=== PATIENT | male | born 1995 | race Caucasian/White ===

== ENCOUNTER 2019-02-15 12:46 | Emergency (ER) | payer BC, OTHER ==
[~2019-02-15] VITALS: Ht 180 cm; Wt 93.3 kg
--- NOTE | 2019-02-15 13:10 | NUR ---
EKG SHOWN TO DR WHO IS OK WITH PT GOING BACK OUT IN THE WAITING ROOM.
[2019-02-15] MEDS ORDERED: fentaNYL INJECTION 100 MCG/2 ML AMP IVP STA (15:29)
[2019-02-15] MEDS ORDERED: NS IV 1000 ML 1,000 ML IV ONE (15:29)
[2019-02-15] MEDS ORDERED: ONDANSETRON 4 MG/2 ML (SDV) Z0FRAN IVP ONE (15:30)
[2019-02-15] MEDS ORDERED: PANTOPRAZOLE 40 MG (PROTONIX) VIAL IV ONE (15:30)
[2019-02-15 15:40] LABS: BASOPHILS % (AUTO) 0 % (0-10); EOSINOPHILS # (AUTO) 0.1 10^3/uL (0.0-0.3); EOSINOPHILS % (AUTO) 1 % (0-10); HEMATOCRIT 43 % (40-54); HEMOGLOBIN 15.3 G/DL (13.3-17.7); LYMPHOCYTES # (AUTO) 1.4 X 10^3 (1.0-4.0); LYMPHOCYTES % (AUTO) 12 % (12-44); MEAN CORPUSCULAR HEMOGLOBIN 31 PG (25-34); MEAN CORPUSCULAR HGB CONC 35 G/DL (32-36); MEAN CORPUSCULAR VOLUME 88 FL (80-99); MEAN PLATELET VOLUME 10.2 FL (7.4-10.4); MONOCYTES # (AUTO) 1.2 X 10^3 (0.0-1.0); MONOCYTES % (AUTO) 11 % (0-12); NEUTROPHILS # (AUTO) 8.5 X 10^3 (1.8-7.8); NEUTROPHILS % (AUTO) 76 % (42-75); PLATELET COUNT 264 10^3/uL (130-400); RED CELL DISTRIBUTION WIDTH 12.3 % (10.0-14.5); WHITE BLOOD COUNT 11.1 10^3/uL (4.3-11.0)
--- NOTE | 2019-02-15 15:42 | ED Abdominal Pain ---
General Chief Complaint: General Problems/Pain Stated Complaint: CP/BLACK STOOL Nursing Triage Note: UPPER RIGHT ABD PAIN THAT RADIATES INTO CHEST STARTING YESTERDAY ET STATES IT IS MORE IN HIS CHEST TODAY. STATES HE ALSO HAD A BLACK LIQUID STOOL THIS AM. HAS HAD SOME N/V IN THE LAST COUPLE OF DAYS AND WAS ALSO ON A CRUISE TO [employer] LAST WEEK. MASK APPLIED DUE TO RECENT FOREIGN TRAVEL. Sepsis Screen: No Definite Risk Source of Information: Patient Exam Limitations: No Limitations History of Present Illness Date Seen by Provider: Feb 15, 2019 Time Seen by Provider: 15:42 Initial Comments 23-year-old male patient presents to the emergency department with complaints of epigastric pain and burning beginning yesterday. Reports pain now radiates into the left chest. He does have a history of reflux symptoms, but states that they have never been this bad. He also noted diarrhea the last 2 days. Bowel movement this a.m. was black liquid. He also does complain of some nausea and vomiting. Patient states he just returned from a cruise to [place]. He reports drinking bottled water, but did eat seared meat at a couple of meals. Denies fever or chills. Patient states he lives in [place] and is passing through [place] on their way home. Timing/Duration: 1-2 Days, Getting Worse Severity/Quality: Aching, Burning Location: Epigastric Radiation: Chest Activities at Onset: None Modifying Factors: Worsens With Eating, Worsens With Palpation Allergies and Home Medications Allergies Coded Allergies: No Known Drug Allergies (Unverified , 02/15/19) Home Medications Omeprazole 40 Mg Capsule.dr, 40 MG PO BID Prescribed by: WENDY LUA on 02/15/191755 Ondansetron 8 Mg Tab.rapdis, 8 MG PO Q6H PRN for NAUSEA/VOMITING Prescribed by: WENDY LUA on 02/15/191755 Patient Home Medication List Home Medication List Reviewed: Yes Review of Systems Review of Systems Constitutional: chills; No diaphoresis, No dizziness, No fever; malaise EENTM: No Symptoms Reported Respiratory: Denies Cough, Denies Orthopnea, Denies Shortness of Air, Denies Stridor, Denies Wheezing Cardiovascular: See HPI; Denies Edema, Denies Irregular Heart Rate, Denies Lightheadedness, Denies Palpitations, Denies Syncope Gastrointestinal: See HPI; Denies Abdomen Distended; Abdominal Pain; Denies Constipated; Diarrhea; Denies Difficulty Swallowing; Nausea, Poor Appetite, Poor Fluid Intake, Vomiting, Other (melena) Genitourinary: Denies Burning, Denies Discharge, Denies Frequency, Denies Flank Pain, Denies Hematuria Musculoskeletal: no symptoms reported Skin: no symptoms reported Psychiatric/Neurological: No Symptoms Reported Endocrine: No Symptoms Reported All Other Systems Reviewed Negative Unless Noted: Yes (Negative excepted noted.) Past Ywhayit-Dsfwlp-Jtexhx Hx Past Med/Social Hx: Reviewed Nursing Past Med/Soc Hx Patient Social History Alcohol Use: Denies Use Recreational Drug Use: No Smoking Status: Never a Smoker 2nd Hand Smoke Exposure: No Recent Foreign Travel: Yes Contact w/Someone Who Travel: Yes Recent Infectious Disease Expo: No Recent Hopitalizations: No Physical Abuse: No Sexual Abuse: No Mistreated: No Fear: No Seasonal Allergies Seasonal Allergies: No Past Medical History Surgeries: No Respiratory: No Cardiac: No Neurological: No Genitourinary: No Gastrointestinal: No Musculoskeletal: No Endocrine: No HEENT: No Cancer: No Psychosocial: No Integumentary: No Blood Disorders: No Family Medical History Reviewed and Corrections made Other Conditions/Hx (mother has an intestinal problem but unsure of exact diagnosis.) Physical Exam Vital Signs Vital Signs - First Documented 02/15/19 02/15/19 13:07 18:23 Temp 36.7 Pulse 93 Resp 16 B/P (MAP) 161/100 (120) Pulse Ox 96 O2 Delivery Room Air O2 Flow Rate 2.00 Capillary Refill : Less Than 3 Seconds Height/Weight/BMI Height: '" Weight: lbs. oz. kg; 28.00 BMI Method: General Appearance: WD/WN, no apparent distress HEENT: PERRL/EOMI, pharynx normal Neck: supple, normal inspection Respiratory: chest non-tender, lungs clear, normal breath sounds, no respiratory distress, no accessory muscle use Cardiovascular: normal peripheral pulses, regular rate, rhythm, no edema, no gallop, no murmur Peripheral Pulses: 2+ Dorsalis Pedis (R), 2+ Left Dors-Pedis (L), 2+ Radial Pulses (R), 2+ Radial Pulses (L) Gastrointestinal: normal bowel sounds, soft, no organomegaly; No distended; guarding (epigastric, RUQ, and RLQ); No rebound; tenderness (epigastric, RUQ, and RLQ); No mass Extremities: no pedal edema, no calf tenderness, normal capillary refill Back: normal inspection, no CVA tenderness Neurologic/Psychiatric: alert, normal mood/affect, oriented x 3 Skin: normal color, warm/dry Progress/Results/Core Measures Results/Orders Lab Results Laboratory Tests Test 02/15/19 13:57 02/15/19 14:52 Range/Units White Blood Count 11.1 H 4.3-11.0 10^3/uL Red Blood Count 4.93 4.35-5.85 10^6/uL Hemoglobin 15.3 13.3-17.7 G/DL Hematocrit 43 40-54 % Mean Corpuscular Volume 88 80-99 FL Mean Corpuscular Hemoglobin 31 25-34 PG Mean Corpuscular Hemoglobin Concent 35 32-36 G/DL Red Cell Distribution Width 12.3 10.0-14.5 % Platelet Count 264 130-400 10^3/uL Mean Platelet Volume 10.2 7.4-10.4 FL Neutrophils (%) (Auto) 76 H 42-75 % Lymphocytes (%) (Auto) 12 12-44 % Monocytes (%) (Auto) 11 0-12 % Eosinophils (%) (Auto) 1 0-10 % Basophils (%) (Auto) 0 0-10 % Neutrophils # (Auto) 8.5 H 1.8-7.8 X 10^3 Lymphocytes # (Auto) 1.4 1.0-4.0 X 10^3 Monocytes # (Auto) 1.2 H 0.0-1.0 X 10^3 Eosinophils # (Auto) 0.1 0.0-0.3 10^3/uL Basophils # (Auto) 0.0 0.0-0.1 10^3/uL Prothrombin Time 14.0 12.2-14.7 SEC INR Comment 1.0 0.8-1.4 Activated Partial Thromboplast Time 28 24-35 SEC Sodium Level 137 135-145 MMOL/L Potassium Level 4.0 3.6-5.0 MMOL/L Chloride Level 100 98-107 MMOL/L Carbon Dioxide Level 25 21-32 MMOL/L Anion Gap 12 5-14 MMOL/L Blood Urea Nitrogen 13 7-18 MG/DL Creatinine 1.03 0.60-1.30 MG/DL Estimat Glomerular Filtration Rate > 60 BUN/Creatinine Ratio 13 Glucose Level 96 70-105 MG/DL Calcium Level 9.4 8.5-10.1 MG/DL Corrected Calcium 8.5-10.1 MG/DL Total Bilirubin 0.8 0.1-1.0 MG/DL Aspartate Amino Transf (AST/SGOT) 16 5-34 U/L Alanine Aminotransferase (ALT/SGPT) 28 0-55 U/L Alkaline Phosphatase 53 40-136 U/L Troponin I < 0.028 <0.028 NG/ML Total Protein 7.7 6.4-8.2 GM/DL Albumin 4.8 H 3.2-4.5 GM/DL Lipase 11 8-78 U/L Urine Color YELLOW Urine Clarity SL CLOUDY Urine pH 7.0 5-9 Urine Specific [place] 1.015 L 1.016-1.022 Urine Protein NEGATIVE NEGATIVE Urine Glucose (UA) NEGATIVE NEGATIVE Urine Ketones NEGATIVE NEGATIVE Urine Nitrite NEGATIVE NEGATIVE Urine Bilirubin NEGATIVE NEGATIVE Urine Urobilinogen 0.2 < = 1.0 MG/DL Urine Leukocyte Esterase NEGATIVE NEGATIVE Urine RBC (Auto) NEGATIVE NEGATIVE Urine RBC NONE /HPF Urine WBC NONE /HPF Urine Squamous Epithelial Cells NONE /HPF Urine Crystals PRESENT H /LPF Urine Amorphous Sediment MOD KRISTOFER PHOSPHATE H /LPF Urine Bacteria TRACE /HPF Urine Casts NONE /LPF Urine Mucus NEGATIVE /LPF Urine Culture Indicated NO My Orders Orders - WENDY LUA Ed Iv/Invasive Line Start (02/15/19 15:29) Monitor-Rhythm Ecg Trace Only (02/15/19 15:29) Cbc With Automated Diff (02/15/19 15:29) Comprehensive Metabolic Panel (02/15/19 15:29) Lipase (02/15/19 15:29) Protime With Inr (02/15/19 15:29) Partial Thromboplastin Time (02/15/19 15:29) Troponin I (02/15/19 15:29) Ua Culture If Indicated (02/15/19 15:29) Ondansetron Injection (Zofran Injectio (02/15/19 15:30) Fentanyl Injection (Sublimaze Injection (02/15/19 15:29) Ns Iv 1000 Ml (Sodium Chloride 0.9%) (02/15/19 15:29) Pantoprazole Injection (Protonix Injecti (02/15/19 15:30) Ct Abdomen/Pelvis W (02/15/19 15:51) Iohexol Injection (Omnipaque 350 Mg/Ml 1 (02/15/19 16:15) Received Contrast (Hold Metformin- Contr (02/15/19 16:15) Ns (Ivpb) (Sodium Chloride 0.9% Ivpb Bag (02/15/19 16:15) Azithromycin Tablet (Zithromax Tablet) (02/15/19 18:15) Rx-Ondansetron Po (Rx-Zofran Po) (02/15/19 18:03) Famotidine Tablet (Pepcid Tablet) (02/15/19 18:15) Medications Given in ED Current Medications Medications Dose Ordered Sig/Rick Route Start Time Stop Time Status Last Admin Dose Admin Azithromycin 1,000 mg ONCE ONCE PO 02/15/19 18:15 02/15/19 18:16 DC 02/15/19 18:12 1,000 MG Famotidine 20 mg ONCE ONCE PO 02/15/19 18:15 02/15/19 18:16 DC 02/15/19 18:12 20 MG Iohexol 100 ml ONCE ONCE IV 02/15/19 16:15 02/15/19 16:16 DC 02/15/19 16:20 100 ML Ondansetron HCl 4 mg ONCE ONCE IVP 02/15/19 15:30 02/15/19 15:33 DC 02/15/19 15:52 4 MG Pantoprazole 80 mg ONCE ONCE IV 02/15/19 15:30 02/15/19 15:33 DC 02/15/19 15:54 80 MG Sodium Chloride 100 ml ONCE ONCE IV 02/15/19 16:15 02/15/19 16:16 DC 02/15/19 16:20 80 ML Sodium Chloride 1,000 ml @ 0 mls/hr Q0M ONCE IV 02/15/19 15:29 02/15/19 15:33 DC 02/15/19 15:55 0 MLS/HR Vital Signs/I&O 02/15/19 02/15/19 13:07 18:23 Temp 36.7 36.7 Pulse 93 93 Resp 16 16 B/P (MAP) 161/100 (120) 161/100 (120) Pulse Ox 96 98 O2 Delivery Room Air Nasal Cannula O2 Flow Rate 2.00 Blood Pressure Mean: 120 Diagnostic Imaging Diagonstic Imaging: CT Plain Films/CT/US/NM/MRI: abdomen, pelvis Comments Date of Exam:02/15/19 CT ABDOMEN/PELVIS W PROCEDURE: CT abdomen and pelvis with contrast. TECHNIQUE: Multiple contiguous axial images were obtained through the abdomen and pelvis after administration of intravenous contrast. Auto Exposure Controls were utilized during the CT exam to meet ALARA standards for radiation dose reduction. INDICATION: Upper right abdominal pain radiating into the chest. COMPARISON: No prior studies are available for comparison. FINDINGS: The lung bases are clear. No discrete liver mass is identified. The gallbladder is unremarkable. No biliary ductal dilatation is detected. The pancreas and spleen are unremarkable. No adrenal mass is detected. No renal mass, calculus or hydronephrosis is identified. Aorta is non-aneurysmal. Bowel loops are normal caliber. There is no obstruction. The appendix is visualized in the right lower quadrant and appears unremarkable. There appears to be a long segment of circumferential wall thickening involving the terminal ileum. There is some surrounding adjacent inflammatory change noted. No free fluid or focal fluid collection is seen. There is no free air. The colon is decompressed. Bladder is unremarkable. Prostate is unremarkable. IMPRESSION: Long segment of circumferential wall thickening with mucosal enhancement involving the terminal ileum and adjacent stranding. Features are consistent with nonspecific enteritis. Inflammatory bowel disease such as Crohn's disease cannot be entirely excluded. No abscess formation or bowel obstruction is seen. No other significant abnormality is detected. Dictated on workstation # [id number] Reviewed: Reviewed by Me (radiology report reviewed by me) Departure Communication (Admissions) Patient seen and evaluated. Initial labs and a CT abdomen/pelvis obtained. Patient given 1 L of normal saline, 80 mg of Protonix IV, Zofran 4 mg IV, and Toradol 30 mg IV 1 dose with improvement in symptoms. Patient case discussed with Dr. Stacy with recommendations for discharge to home and follow-up as an outpatient for recheck. All laboratory and diagnostic findings discussed with the patient. All laboratory findings, diagnostic study findings, and recommendations by Dr. Stacy discussed with the patient. Patient is traveling home to [place]. patient instructed to follow-up with his primary care provider early this week when he returns to [place]. He will call tomorrow morning for appointment time. He is to go immediately to the closest emergency department for worsened symptoms or any other concerns. Patient case discussed with Dr. Jc, he agrees with the plan of care. Impression Primary Impression: Abdominal pain Qualified Codes: R10.84 - Generalized abdominal pain Additional Impressions: Diarrhea in adult patient Gastritis Qualified Codes: K29.00 - Acute gastritis without bleeding Recent foreign travel Disposition: HOME, SELF-CARE Condition: Improved Departure-Patient Inst. Decision time for Depature: 17:52 Referrals: NO,LOCAL PHYSICIAN (PCP/Family) Primary Care Physician Patient Instructions: Diarrhea and Traveler's Diarrhea, Adult (DC), Gastritis (DC), Acute Abdomen (Belly Pain) Add. Discharge Instructions: All discharge instructions reviewed with patient and/or family. Voiced understanding. Medications as instructed. Pepcid [id number] 20 mg by mouth twice daily as needed for gastritis, nausea, or vomiting. Stay well hydrated. Tylenol extra strength [id number] as directed for pain if needed. No NSAIDs (ibuprofen, Aleve, or aspirin), spicy foods, fatty foods, carbonated beverages, caffeinated beverages, alcohol, smoking, or secondhand smoke. Do not eat within 2 hours of lying down. You may use times, Maalox, or Rolaids as needed for symptomatic relief. Follow-up with your family practitioner in [place] early this week for recheck, call tomorrow morning for a ppointment time. Go to the closest emergency department for worsened symptoms, increased pain, fever, vomiting blood, rectal bleeding, black stools, abdominal swelling, decreased urination, or any other concerns. Scripts Omeprazole (Omeprazole) 40 Mg Capsule. 40 MG PO BID, #60 CAP 0 Refills Prov: WENDY LUA 02/15/19 Ondansetron (Ondansetron Odt) 8 Mg Tab.rapdis 8 MG PO Q6H PRN for NAUSEA/VOMITING, #10 TAB 0 Refills Prov: WENDY LUA 02/15/19 WENDY LUA Feb 15, 2019 15:42
[2019-02-15 15:57] LABS: ALANINE AMINOTRANSFERASE 28 U/L (0-55); ALBUMIN 4.8 GM/DL (3.2-4.5); ALKALINE PHOSPHATASE 53 U/L (40-136); BILIRUBIN,TOTAL 0.8 MG/DL (0.1-1.0); BUN/CREATININE RATIO 13; CALCIUM 9.4 MG/DL (8.5-10.1); CARBON DIOXIDE 25 MMOL/L (21-32); CHLORIDE 100 MMOL/L (98-107); CREATININE SERUM 1.03 MG/DL (0.60-1.30); GFR ESTIMATED > 60; GLUCOSE 96 MG/DL (70-105); LIPASE 11 U/L (8-78); SODIUM 137 MMOL/L (135-145); TOTAL PROTEIN 7.7 GM/DL (6.4-8.2)
[2019-02-15] MEDS ORDERED: IOHEXOL 350 MG/ML 100 ML (OMNIPAQUE 350) VIAL IV ONE (16:15)
[2019-02-15] MEDS ORDERED: HOLD METFORMIN - RECEIVED CONTRAST 20 ML VIAL IV SCH (16:15)
[2019-02-15] MEDS ORDERED: NS 100 ML (IVPB) BAG IV ONE (16:15)
--- NOTE | 2019-02-15 16:56 | Diagnostic Imaging Report ---
PROCEDURE: CT abdomen and pelvis with contrast. TECHNIQUE: Multiple contiguous axial images were obtained through the abdomen and pelvis after administration of intravenous contrast. Auto Exposure Controls were utilized during the CT exam to meet ALARA standards for radiation dose reduction. INDICATION: Upper right abdominal pain radiating into the chest. COMPARISON: No prior studies are available for comparison. FINDINGS: The lung bases are clear. No discrete liver mass is identified. The gallbladder is unremarkable. No biliary ductal dilatation is detected. The pancreas and spleen are unremarkable. No adrenal mass is detected. No renal mass, calculus or hydronephrosis is identified. Aorta is non-aneurysmal. Bowel loops are normal caliber. There is no obstruction. The appendix is visualized in the right lower quadrant and appears unremarkable. There appears to be a long segment of circumferential wall thickening involving the terminal ileum. There is some surrounding adjacent inflammatory change noted. No free fluid or focal fluid collection is seen. There is no free air. The colon is decompressed. Bladder is unremarkable. Prostate is unremarkable. IMPRESSION: Long segment of circumferential wall thickening with mucosal enhancement involving the terminal ileum and adjacent stranding. Features are consistent with nonspecific enteritis. Inflammatory bowel disease such as Crohn's disease cannot be entirely excluded. No abscess formation or bowel obstruction is seen. No other significant abnormality is detected. Dictated by: Dictated on workstation # [id number]
[2019-02-15 16:59] LABS: BILIRUBIN,URINE NEGATIVE (NEGATIVE); COLOR,URINE YELLOW; GLUCOSE, URINE (UA) NEGATIVE (NEGATIVE); KETONES,URINE NEGATIVE (NEGATIVE); LEUKOCYTE ESTERASE ,URINE NEGATIVE (NEGATIVE); NITRITE,URINE NEGATIVE (NEGATIVE); PROTEIN,URINE NEGATIVE (NEGATIVE)
[2019-02-15 17:03] LABS: CLARITY,URINE SL CLOUDY
[2019-02-15 17:04] LABS: BACTERIA,URINE TRACE /HPF
[2019-02-15 17:05] LABS: AMORPHOUS SEDIMENT,UR MOD AMOR PHOSPHATE /LPF
[2019-02-15] MEDS ORDERED: ONDA8TAB13 PO (17:56)
[2019-02-15] MEDS ORDERED: LEVO500T80 PO (17:56)
[2019-02-15] MEDS ORDERED: OMEP40CA36 PO (17:56)
[2019-02-15] MEDS ORDERED: RX-ONDANSETRON 4 MG ODT (ZOFRAN) PPK #4 PO STA (18:03)
[2019-02-15] MEDS ORDERED: AZITHROMYCIN 250 MG TAB (ZITHROMAX) PO ONE (18:15)
[2019-02-15] MEDS ORDERED: FAMOTIDINE 20 MG (PEPCID) TABLET PO ONE (18:15)
[2019-02-15 18:23] VITALS: BP 161/100
== END 2019-02-15 18:18 | disposition home or self-care (01) ==
LOC: ER 12:48
DX: K29.70 Gastritis, unspecified, without bleeding (principal); R19.7 Diarrhea, unspecified; Z71.89 Other specified counseling
CPT/HCPCS: 36415; 74177; 80053; 81000; 83690; 84484; 85025; 85610; 85730; 93005; 96361; 96374; 96375